=== PATIENT | male | born 1955 | race Caucasian/White ===

== ENCOUNTER 2022-10-18 05:50 | Inpatient (IN) | payer MEDICARE, OTHER ==
[2022-10-18] MEDS ORDERED: SODIUM CHLORIDE 0.9% 1,000 ML IV ONE (06:02)
[2022-10-18 06:05] LABS: Glucose,Whole Blood 109 mg/dL (70-110)
[2022-10-18] MEDS ORDERED: LORazepam 2 MG/ML INJ IV STA (06:06)
[2022-10-18 06:29] LABS: Basophils % (A) 1 %; Eosinophils # (A) 0.1 k/uL (0-0.7); Eosinophils % (A) 1 %; HCT 45.2 % (39.0-53.0); HGB 15.2 gm/dL (13.0-17.5); Lymphocytes # (A) 1.6 k/uL (1.0-4.8); Lymphocytes % (A) 20 %; MCH 37.1 pg (25.0-35.0); MCHC 33.5 g/dL (31.0-37.0); MCV 110.7 fL (80.0-100.0); Macrocytosis Marked; Mean Platelet Volume 8.3; Monocytes # (A) 0.4 k/uL (0-1.0); Monocytes % (A) 5 %; Neutrophils # (A) 5.7 k/uL (1.3-7.7); Neutrophils % (A) 71 %; Platelet Count 134 k/uL (150-450); RBC 4.08 m/uL (4.30-5.90); RDW 13.7 % (11.5-15.5)
[2022-10-18 06:32] LABS: AST 44 U/L (17-59); Acetaminophen <10.0 ug/mL; African American GFR (CKD) >90 (>60 ml/min/1.73 sqM); Albumin 3.9 g/dL (3.5-5.0); Alcohol <10 mg/dL; Alkaline Phosphatase 102 U/L (38-126); Anion Gap 14 mmol/L; Blood Urea Nitrogen 6 mg/dL (9-20); Calcium 8.7 mg/dL (8.4-10.2); Carbon Dioxide 17 mmol/L (22-30); Chloride 103 mmol/L (98-107); Creatine Kinase 71 U/L (55-170); Glucose 142 mg/dL (74-99); Non-African American GFR(CKD) 89 (>60 ml/min/1.73 sqM); Salicylate <1.0 mg/dL; Sodium 134 mmol/L (137-145); Total Bilirubin 1.3 mg/dL (0.2-1.3); Total Protein 7.3 g/dL (6.3-8.2)
[2022-10-18 06:35] LABS: INR 0.9 (<1.2)
[2022-10-18 06:38] LABS: ALT 38 U/L (4-49)
--- NOTE | 2022-10-18 06:56 | XR ---
EXAMINATION TYPE: XR pelvis AP view DATE OF EXAM: 10/18/2022 CLINICAL HISTORY: Injury with pain. TECHNIQUE: A single AP view of the pelvis is obtained. COMPARISON: None. FINDINGS: There is no acute fracture/dislocation evident in the pelvis. [id number] axial joint space loss in both hips. Sacroiliac joints are preserved. Pubic symphysis intact. The overlying sof t tissue appears unremarkable. IMPRESSION: There is no acute fracture or dislocation in the pelvis.
--- NOTE | 2022-10-18 06:57 | XR ---
EXAMINATION TYPE: XR chest 1V portable DATE OF EXAM: 10/18/2022 COMPARISON: NONE HISTORY: Altered mental status and weakness. TECHNIQUE: Single frontal view of the chest is obtained. FINDINGS: There is some chronic parenchymal change without suspicious focal air space opacity, pleur al effusion, or pneumothorax seen. The cardiac silhouette size is within normal limits with ectatic and atherosclerotic aorta. The osseous structures are intact. Overlying EKG leads. IMPRESSION: No acute process.
[2022-10-18 07:04] LABS: Appearance,Urine Clear (Clear); Bilirubin,Urine Negative (Negative); Blood,Urine Small (Negative); Color,Urine Yellow; Glucose,Urine (UA) Trace (Negative); Hyaline Casts,Urine 22 /lpf (0-2); Ketones,Urine 1+ (Negative); Leukocyte Esterase,Urine Negative (Negative); Mucus,Urine Rare /hpf; Nitrite,Urine Negative (Negative); PH, Urine 5.5 (5.0-8.0); Protein,Urine 2+ (Negative); RBC,Urine <1 /hpf (0-5); Specific Gravity,Urine 1.018 (1.001-1.035); Urobilinogen,Urine <2.0 mg/dL (<2.0); WBC,Urine 1 /hpf (0-5)
--- NOTE | 2022-10-18 07:05 | CT ---
EXAMINATION TYPE: CT brain luigi pineda DATE OF EXAM: 10/18/2022 COMPARISON: NONE HISTORY: Seizures, found down, neck pain. CT DLP: 1653.9 mGycm. Automated Exposure Control for Dose Reduction was Utilized. TECHNIQUE: CT scan of the head and cervical spine are performed without contrast. FINDINGS: There is no acute intracranial hemorrhage or midline shift identified. Mild to moderate v entricular and sulcal prominence. Dean-white matter differentiation fairly well-preserved. The calvar ium is intact. The globes are intact and the visualized sinuses are clear. Cervical spine is visualized in its entirety from C1 through upper thoracic levels and demonstrates l oss of normal cervical curvature without evidence of acute fracture or dislocation. Prevertebral sof t tissue appears within normal limits. The C1-C2 articulation is within normal limits on the coronal images. Slight grade 1 anterolisthesis of C3 on C4 and C4 on C5. There is grade 1 retrolisthesis C5 on C6 and C6 on C7. Moderate disc space narrowing and spurring C5-C6 and C6-C7 levels is seen. Revie w of axial images show multilevel uncovertebral and facet degenerative changes causing multilevel faustino ateral neural foraminal narrowing. Lung apices show emphysematous change and parenchymal scarring but no pneumothorax. Moderate calcified plaque near bilateral carotid bulb levels is incidentally noted. IMPRESSION: 1. There is no acute fracture or dislocation evident in the cervical spine. 2. No acute intracranial hemorrhage or midline shift is seen.
[2022-10-18 07:15] LABS: Amphetamine Screen,Urine Not Detected (NotDetected); Barbiturate Screen,Urine Not Detected (NotDetected); Benzodiazepines Screen,Urine Not Detected (NotDetected); Cocaine Screen,Urine Not Detected (NotDetected); Methadone Screen, Urine Not Detected (NotDetected); Opiate Screen,Urine Not Detected (NotDetected); Oxycodone Screen, Urine Not Detected (NotDetected); Phencyclidine Screen,Urine Not Detected (NotDetected); Tricyclic Antidepressant,Urine Not Detected (NotDetected); Urn Cannabinoid Scrn Not Detected (NotDetected)
[2022-10-18 07:17] LABS: Partial Thromboplastin Time 21.2 sec (22.0-30.0)
--- NOTE | 2022-10-18 08:11 | ED ---
Altered Mental Status HPI - General Chief Complaint: Altered Mental Status Stated Complaint: Fall Time Seen by Provider: 10/18/22 05:52 Source: patient, EMS Mode of arrival: EMS - History of Present Illness Initial Comments: 67-year-old male presents the emergency department with altered mental status. He recently moved to [place] from [place]. He is living with his brother who found the patient unresponsive at home. It is unknown how the patient was found in regards to positioning or how long he had been down. There are no external signs of trauma. Patient was combative and confused. Upon arrival the patient was placed in trauma 1. He is able to answer questions. Family states that the patient is a significant drinker. Unknown his last drink. They deny drug use. No seizure history. No recent illnesses. The HPI is limited due to patient's current mental status - Related Data Previous Rx's Medication Instructions Recorded Multivitamins, Thera [Multivitamin] 1 tab PO DAILY #30 tablet 10/19/22 Thiamine [Vitamin B-1] 100 mg PO DAILY 30 Days #30 tab 10/19/22 Allergies Allergy/AdvReac Type Severity Reaction Status Date / Time No Known Allergies Allergy Verified 10/18/22 06:02 Review of Systems ROS Statement: Those systems with pertinent positive or pertinent negative responses have been documented in the HPI. ROS Other: All systems not noted in ROS Statement are negative. General Exam Limitations: altered mental status General appearance: obtunded Head exam: Present: atraumatic, normocephalic, normal inspection Eye exam: Present: normal appearance, PERRL, EOMI. Absent: scleral icterus, conjunctival injection, periorbital swelling ENT exam: Present: normal exam, mucous membranes moist Neck exam: Present: normal inspection. Absent: tenderness, meningismus, lymphadenopathy Respiratory exam: Present: normal lung sounds bilaterally. Absent: respiratory distress, wheezes, rales, rhonchi, stridor Cardiovascular Exam: Present: regular rate, normal rhythm, normal heart sounds. Absent: systolic murmur, diastolic murmur, rubs, gallop, clicks GI/Abdominal exam: Present: soft, normal bowel sounds. Absent: distended, tenderness, guarding, rebound, rigid Extremities exam: Present: normal inspection, full ROM, normal capillary refill. Absent: tenderness, pedal edema, joint swelling, calf tenderness Back exam: Present: normal inspection Neurological exam: Present: altered, CN II-XII intact Skin exam: Present: warm, dry, intact, normal color. Absent: rash Course Vital Signs 10/18/22 10/18/22 10/18/22 05:55 06:05 06:18 Temperature 98.2 F Pulse Rate 92 102 H 107 H Pulse Rate [ Face Cleaner ] Respiratory 20 15 20 Rate Blood Pressure 156/102 178/82 150/85 Blood Pressure [Left Arm] O2 Sat by Pulse 98 99 100 Oximetry 10/18/22 10/18/22 10/18/22 06:55 07:07 07:30 Temperature Pulse Rate 92 96 Pulse Rate [ 97 Face Cleaner ] Respiratory 20 18 17 Rate Blood Pressure 128/77 129/71 Blood Pressure 127/77 [Left Arm] O2 Sat by Pulse 100 99 99 Oximetry 10/18/22 10/18/22 10/18/22 08:00 08:30 09:00 Temperature Pulse Rate 95 80 92 Pulse Rate [ Face Cleaner ] Respiratory 16 15 15 Rate Blood Pressure 128/75 131/84 135/87 Blood Pressure [Left Arm] O2 Sat by Pulse 100 91 L 92 L Oximetry 10/18/22 10/18/22 10/18/22 09:30 10:00 10:42 Temperature Pulse Rate 74 70 72 Pulse Rate [ Face Cleaner ] Respiratory 17 16 14 Rate Blood Pressure 115/84 133/92 123/93 Blood Pressure [Left Arm] O2 Sat by Pulse 93 L 97 95 Oximetry Medical Decision Making - Medical Decision Making Upon arrival the patient was placed in trauma 1. A thorough history and physical exam was performed. IV access was established and the patient was given a liter bolus of normal saline. He was then started on 130 mL per hour. Laboratory studies are conducted and reviewed. Patient does have a full tonic- clonic seizure in the trauma bay and therefore he is given 2 mg of Ativan. Laboratory studies are mostly within normal limits. CT the head is performed which demonstrated no acute intracranial process. Chest and pelvic x-ray also performed as it is unknown the patient sustained any injuries. CT and chest x- ray are read by myself and also read by the radiologist as negative for any acute process. I did speak with the patient's sister who states that he drinks half a gallon a day. Alcohol negative at this time. Suspect alcohol withdrawal seizures. Patient does become more alert and does state that he is a drinker however he only drinks "a little bitta ihsan" I recommended admission for which the patient was agreeable. Spoke with Kya from [facility] fo admission. - Lab Data Result diagrams: 10/19/22 03:37 10/19/22 03:37 Lab Results 10/18/22 10/18/22 10/18/22 Range/Units 06:04 06:09 06:09 WBC 8.0 (3.8-10.6) k/uL RBC 4.08 L (4.30-5.90) m/uL Hgb 15.2 (13.0-17.5) gm/dL Hct 45.2 (39.0-53.0) % MCV 110.7 H (80.0-100.0) fL MCH 37.1 H (25.0-35.0) pg MCHC 33.5 (31.0-37.0) g/dL RDW 13.7 (11.5-15.5) % Plt Count 134 L (150-450) k/uL MPV 8.3 Neutrophils % 71 % Lymphocytes % 20 % Monocytes % 5 % Eosinophils % 1 % Basophils % 1 % Neutrophils # 5.7 (1.3-7.7) k/uL Lymphocytes # 1.6 (1.0-4.8) k/uL Monocytes # 0.4 (0-1.0) k/uL Eosinophils # 0.1 (0-0.7) k/uL Basophils # 0.0 (0-0.2) k/uL Manual Slide Review Performed Macrocytosis Marked A PT 10.0 (9.0-12.0) sec INR 0.9 (<1.2) APTT 21.2 L (22.0-30.0) sec Sodium (137-145) mmol/L Potassium (3.5-5.1) mmol/L Chloride (98-107) mmol/L Carbon Dioxide (22-30) mmol/L Anion Gap mmol/L BUN (9-20) mg/dL Creatinine (0.66-1.25) mg/dL Est GFR (CKD-EPI)AfAm (>60 ml/min/1.73 sqM) Est GFR (CKD-EPI)NonAf (>60 ml/min/1.73 sqM) Glucose (74-99) mg/dL POC Glucose (mg/dL) 109 (70-110) mg/dL POC Glu Elevator Builder ID Lino Berry Calcium (8.4-10.2) mg/dL Total Bilirubin (0.2-1.3) mg/dL AST (17-59) U/L ALT (4-49) U/L Alkaline Phosphatase (38-126) U/L Creatine Kinase (55-170) U/L Troponin I (0.000-0.034) ng/mL Total Protein (6.3-8.2) g/dL Albumin (3.5-5.0) g/dL Vitamin B12 (200.0-944.0) pg/mL Folate (4.40-31.00) ng/mL TSH (0.465-4.680) mIU/L Free T4 (0.78-2.19) ng/dL Urine Color Urine Appearance (Clear) Urine pH (5.0-8.0) Ur Specific [place] (1.001-1.035) Urine Protein (Negative) Urine Glucose (UA) (Negative) Urine Ketones (Negative) Urine Blood (Negative) Urine Nitrite (Negative) Urine Bilirubin (Negative) Urine Urobilinogen (<2.0) mg/dL Ur Leukocyte Esterase (Negative) Urine RBC (0-5) /hpf Urine WBC (0-5) /hpf Hyaline Casts (0-2) /lpf Urine Mucus (None) /hpf Salicylates mg/dL Urine Opiates Screen (NotDetected) Ur Oxycodone Screen (NotDetected) Urine Methadone Screen (NotDetected) Ur Propoxyphene Screen (NotDetected) Acetaminophen ug/mL Ur Barbiturates Screen (NotDetected) U Tricyclic Antidepress (NotDetected) Ur Phencyclidine Scrn (NotDetected) Ur Amphetamines Screen (NotDetected) U Methamphetamines Scrn (NotDetected) U Benzodiazepines Scrn (NotDetected) Urine Cocaine Screen (NotDetected) U Marijuana (THC) Screen (NotDetected) Serum Alcohol mg/dL 10/18/22 10/18/22 10/18/22 Range/Units 06:09 06:09 06:09 WBC (3.8-10.6) k/uL RBC (4.30-5.90) m/uL Hgb (13.0-17.5) gm/dL Hct (39.0-53.0) % MCV (80.0-100.0) fL MCH (25.0-35.0) pg MCHC (31.0-37.0) g/dL RDW (11.5-15.5) % Plt Count (150-450) k/uL MPV Neutrophils % % Lymphocytes % % Monocytes % % Eosinophils % % Basophils % % Neutrophils # (1.3-7.7) k/uL Lymphocytes # (1.0-4.8) k/uL Monocytes # (0-1.0) k/uL Eosinophils # (0-0.7) k/uL Basophils # (0-0.2) k/uL Manual Slide Review Macrocytosis PT (9.0-12.0) sec INR (<1.2) APTT (22.0-30.0) sec Sodium 134 L (137-145) mmol/L Potassium 4.0 (3.5-5.1) mmol/L Chloride 103 (98-107) mmol/L Carbon Dioxide 17 L (22-30) mmol/L Anion Gap 14 mmol/L BUN 6 L (9-20) mg/dL Creatinine 0.86 (0.66-1.25) mg/dL Est GFR (CKD-EPI)AfAm >90 (>60 ml/min/1.73 sqM) Est GFR (CKD-EPI)NonAf 89 (>60 ml/min/1.73 sqM) Glucose 142 H (74-99) mg/dL POC Glucose (mg/dL) (70-110) mg/dL POC Glu Elevator Builder ID Calcium 8.7 (8.4-10.2) mg/dL Total Bilirubin 1.3 (0.2-1.3) mg/dL AST 44 (17-59) U/L ALT 38 (4-49) U/L Alkaline Phosphatase 102 (38-126) U/L Creatine Kinase 71 (55-170) U/L Troponin I <0.012 (0.000-0.034) ng/mL Total Protein 7.3 (6.3-8.2) g/dL Albumin 3.9 (3.5-5.0) g/dL Vitamin B12 294.0 (200.0-944.0) pg/mL Folate (4.40-31.00) ng/mL TSH 6.070 H (0.465-4.680) mIU/L Free T4 1.00 (0.78-2.19) ng/dL Urine Color Urine Appearance (Clear) Urine pH (5.0-8.0) Ur Specific [place] (1.001-1.035) Urine Protein (Negative) Urine Glucose (UA) (Negative) Urine Ketones (Negative) Urine Blood (Negative) Urine Nitrite (Negative) Urine Bilirubin (Negative) Urine Urobilinogen (<2.0) mg/dL Ur Leukocyte Esterase (Negative) Urine RBC (0-5) /hpf Urine WBC (0-5) /hpf Hyaline Casts (0-2) /lpf Urine Mucus (None) /hpf Salicylates <1.0 mg/dL Urine Opiates Screen (NotDetected) Ur Oxycodone Screen (NotDetected) Urine Methadone Screen (NotDetected) Ur Propoxyphene Screen (NotDetected) Acetaminophen <10.0 ug/mL Ur Barbiturates Screen (NotDetected) U Tricyclic Antidepress (NotDetected) Ur Phencyclidine Scrn (NotDetected) Ur Amphetamines Screen (NotDetected) U Methamphetamines Scrn (NotDetected) U Benzodiazepines Scrn (NotDetected) Urine Cocaine Screen (NotDetected) U Marijuana (THC) Screen (NotDetected) Serum Alcohol <10 mg/dL 10/18/22 10/18/22 Range/Units 06:09 06:31 WBC (3.8-10.6) k/uL RBC (4.30-5.90) m/uL Hgb (13.0-17.5) gm/dL Hct (39.0-53.0) % MCV (80.0-100.0) fL MCH (25.0-35.0) pg MCHC (31.0-37.0) g/dL RDW (11.5-15.5) % Plt Count (150-450) k/uL MPV Neutrophils % % Lymphocytes % % Monocytes % % Eosinophils % % Basophils % % Neutrophils # (1.3-7.7) k/uL Lymphocytes # (1.0-4.8) k/uL Monocytes # (0-1.0) k/uL Eosinophils # (0-0.7) k/uL Basophils # (0-0.2) k/uL Manual Slide Review Macrocytosis PT (9.0-12.0) sec INR (<1.2) APTT (22.0-30.0) sec Sodium (137-145) mmol/L Potassium (3.5-5.1) mmol/L Chloride (98-107) mmol/L Carbon Dioxide (22-30) mmol/L Anion Gap mmol/L BUN (9-20) mg/dL Creatinine (0.66-1.25) mg/dL Est GFR (CKD-EPI)AfAm (>60 ml/min/1.73 sqM) Est GFR (CKD-EPI)NonAf (>60 ml/min/1.73 sqM) Glucose (74-99) mg/dL POC Glucose (mg/dL) (70-110) mg/dL POC Glu Elevator Builder ID Calcium (8.4-10.2) mg/dL Total Bilirubin (0.2-1.3) mg/dL AST (17-59) U/L ALT (4-49) U/L Alkaline Phosphatase (38-126) U/L Creatine Kinase (55-170) U/L Troponin I (0.000-0.034) ng/mL Total Protein (6.3-8.2) g/dL Albumin (3.5-5.0) g/dL Vitamin B12 (200.0-944.0) pg/mL Folate 4.90 (4.40-31.00) ng/mL TSH (0.465-4.680) mIU/L Free T4 (0.78-2.19) ng/dL Urine Color Yellow Urine Appearance Clear (Clear) Urine pH 5.5 (5.0-8.0) Ur Specific [place] 1.018 (1.001-1.035) Urine Protein 2+ H (Negative) Urine Glucose (UA) Trace H (Negative) Urine Ketones 1+ H (Negative) Urine Blood Small H (Negative) Urine Nitrite Negative (Negative) Urine Bilirubin Negative (Negative) Urine Urobilinogen <2.0 (<2.0) mg/dL Ur Leukocyte Esterase Negative (Negative) Urine RBC <1 (0-5) /hpf Urine WBC 1 (0-5) /hpf Hyaline Casts 22 H (0-2) /lpf Urine Mucus Rare H (None) /hpf Salicylates mg/dL Urine Opiates Screen Not Detected (NotDetected) Ur Oxycodone Screen Not Detected (NotDetected) Urine Methadone Screen Not Detected (NotDetected) Ur Propoxyphene Screen Not Detected (NotDetected) Acetaminophen ug/mL Ur Barbiturates Screen Not Detected (NotDetected) U Tricyclic Antidepress Not Detected (NotDetected) Ur Phencyclidine Scrn Not Detected (NotDetected) Ur Amphetamines Screen Not Detected (NotDetected) U Methamphetamines Scrn Not Detected (NotDetected) U Benzodiazepines Scrn Not Detected (NotDetected) Urine Cocaine Screen Not Detected (NotDetected) U Marijuana (THC) Screen Not Detected (NotDetected) Serum Alcohol mg/dL - EKG Data EKG Comments: EKG demonstrates a sinus tachycardia with rate of 102. HI interval 138. QRS 101. QTC of 407. No acute ST segment elevations or depressions. EKG was interpreted by myself Disposition Clinical Impression: Alcohol withdrawal, Alcohol withdrawal seizure Narrative: seizure Disposition: ADMITTED IP TO THIS [facility] Condition: Stable Is patient prescribed a controlled substance at d/c from ED?: No Time of Disposition: 08:17 Decision to Admit Reason: Admit from EC Decision Date: 10/18/22 Decision Time: 08:17
[2022-10-18] MEDS ORDERED: NALOXONE 0.4 MG/ML 1 ML VIAL IV PRN (08:17)
[2022-10-18] MEDS ORDERED: THIAMINE 100 MG/ML 2 ML VIAL IM STA (08:23)
[2022-10-18] MEDS ORDERED: LORazepam 1 MG TAB PO PRN ×3 (08:23)
[2022-10-18] MEDS ORDERED: LORazepam 0.5 MG TAB PO PRN (08:23)
[2022-10-18] MEDS: SODIUM CHLORIDE 0.9% 1,000 ML IV SCH ×3 (09:06→19:37)
--- NOTE | 2022-10-18 13:24 | P.CNNES ---
History of Present Illness Consult date: 10/18/22 Requesting physician: Shira Jacobson Reason for Consult: New onset seizure History of Present Illness: Patient is a 67-year-old male came to the hospital by ambulance early this morning at 5:50 AM for a new onset seizure. EMS flow sheet not available in the chart. Patient not able to provide any history. Patient states that he does not remember anything and just woke up in the ER. He states that yesterday he was laying in the bed and his mood was changing. Patient then mentioned that he slept hold a yesterday, because he has not had good sleep the night prior. Patient had a seizure in the ER about 10 minutes after arrival to the ER. Patient was alert and oriented 3 prior to the seizure but confused about current situation. Seizure lasted approximately 1 minute. Patient was given 2 mg Ativan and placed on nonrebreather after the seizure. According to the ED record, patient has recently moved to [place] from [place]. He is living with his brother who found patient unresponsive at his home. There were no external signs of trauma. Patient was combative and confused. Family has mentioned that patient is a significant drinker, unknown his last drink. They denied drug use. No previous history of seizures. No recent illnesses. Vital signs arrival blood pressure 156/102, pulse rate 92 temperature 98.2. Blood pressure was normal WBC, hemoglobin 15.2 with elevated MCV 110.7. Platelets are 134. PT/PTT normal. Sodium 134 potassium 4.0, normal renal and hepatic panel. CK is normal, troponin negative. TSH is mildly elevated 6.070 with normal free T4 1.0. UA is negative. Urine drug screen negative, blood alcohol level <10. Computed tomography scan cervical spine showed no acute fracture or dislocation evident in the cervical spine. CT head showed no acute intracranial hemorrhage or midline shift. I personally reviewed CT head, agree with the findings. Chest x-ray is normal. Pelvic x-ray showed no fracture. EKG shows sinus tachycardia. Patient at present denies any numbness or tingling. Denies any headache. No fever. No previous history of concussions. Patient tells me that he only drinks 2 bottles of beer about once or twice a week. He denies significant al coholism. He admits to smoking one pack per day since age 17. He denies any history of seizures. Review of Systems Constitutional: Denies chills, Denies fever Eyes: denies blurred vision, denies pain Ears, nose, mouth and throat: Denies headache, Denies sore throat Cardiovascular: Denies chest pain, Denies shortness of breath Respiratory: Denies cough Gastrointestinal: Denies abdominal pain, Denies diarrhea, Denies nausea, Denies vomiting Musculoskeletal: Denies myalgias Integumentary: Denies pruritus, Denies rash Neurological: Reports as per HPI Psychiatric: Denies anxiety, Denies depression Endocrine: Denies fatigue, Denies weight change Medications and Allergies Home Medications Medication Instructions Recorded Confirmed Type Unable To Assess [Unable to Assess] 10/18/22 10/18/22 History Allergies Allergy/AdvReac Type Severity Reaction Status Date / Time No Known Allergies Allergy Verified 10/18/22 06:02 Physical Examination - Vital Signs Vital Signs: Vital Signs Temp Pulse Pulse Resp BP BP Pulse Ox 10/18/22 09:00 92 15 135/87 92 L 10/18/22 08:30 80 15 131/84 91 L 10/18/22 08:00 95 16 128/75 100 10/18/22 07:30 96 17 129/71 99 10/18/22 07:07 92 18 128/77 99 10/18/22 06:55 97 20 127/77 100 10/18/22 06:18 107 H 20 150/85 100 10/18/22 06:05 102 H 15 178/82 99 10/18/22 05:55 98.2 F 92 20 156/102 98 Intake and Output 10/17/22 10/18/22 10/18/22 22:59 06:59 14:59 Other: Weight 61.235 kg Patient is an elderly male, appears slightly younger than his stated age. Patient is somnolent, probably from receiving Ativan and postictal state. Patient knows that he is in the hospital, but thinks is in the [facility] in [place]. He states that he lives in [place]. He thinks it is June 2022. When I mentioned that the month is incorrect, states it's August. He knows name of the current president. Speech and language functions are normal. Patient can name and repeat very well. No aphasia or dysarthria. Attention, concentration and fund of knowledge is limited. On cranial nerve examination, pupils are equal, round and reacting to light, visual rocha are full on confrontation, with no neglect on double simultaneous depression. Extraocular muscles are intact with no nystagmus. Face is symmetric, tongue protrudes to the midline. Palatal elevation and sensation normal, hearing and shoulder shrug normal, facial sensation normal. No signs of oral trauma. On muscle strength testing, there is no pronator drift and the strength is normal in arms and legs distally and proximally, except left deltoid which is painful and about 4. Deep tendon reflexes are symmetric biceps 1, brachioradialis 1, knees 2, ankles 1+ and plantar is up on the right, down, and flat on the left. Sensory to touch is equal with no neglect on double simultaneous stimulation. Cerebellar function showed no ataxia for [id number] testing. Patient did not cooperate for [id number] testing. Tone and bulk of muscles normal. Gait deferred.. On general examination, there is no carotid bruit or murmur, S1-S2 audible. Chest is clear on consultation. Abdomen is soft nontender. No organomegaly, bowel sounds present. Peripheral pulses are present. No edema. Results - Laboratory Findings CBC and BMP: 10/18/22 06:09 10/18/22 06:09 Abnormal Lab Findings: Abnormal Labs 10/18/22 10/18/22 10/18/22 06:09 06:09 06:09 RBC 4.08 L MCV 110.7 H MCH 37.1 H Plt Count 134 L Macrocytosis Marked A APTT 21.2 L Sodium 134 L Carbon Dioxide 17 L BUN 6 L Glucose 142 H TSH 6.070 H Urine Protein Urine Glucose (UA) Urine Ketones Urine Blood Hyaline Casts Urine Mucus 10/18/22 06:31 RBC MCV MCH Plt Count Macrocytosis APTT Sodium Carbon Dioxide BUN Glucose TSH Urine Protein 2+ H Urine Glucose (UA) Trace H Urine Ketones 1+ H Urine Blood Small H Hyaline Casts 22 H Urine Mucus Rare H Assessment and Plan Assessment: * New onset seizure, unclear etiology. Possible alcohol withdrawal. Patient's family has reported in the ER that he is a drinker, although patient denies heavy drinking at this time. * Macrocytosis, probably due to alcoholism * Tobacco use Plan: * EEG evaluate for any epileptiform activity. * WA protocol, watch for DTs. * B12, folate * Continue thiamine, folic acid. * Recommended tobacco cessation, and abstain from alcoholism (if confirmed) * No driving for 6 months, climbing ladders, operate dangerous machinery or unsupervised swimming. * Neurology will follow. Thank you for the consult. Addendum: EEG was performed, which is normal in awake, drowsy and sleep state. No epileptiform activity was seen.
--- NOTE | 2022-10-18 14:10 | P.HPIM ---
History of Present Illness H&P Date: 10/18/22 This is a 67-year-old male who presented to the emergency department this morning at altered mental status. Patient per family was recently living in [place] and moving up here to stay with family. Patient is noted to have a profound drinking history and when asking patient he reports a few beers daily. Sister reported he drinks approximately half gallon of liquor daily and unknown of his last drink. Patient came in altered and confused and combative and was noted to have seizure-like activity in the ER with neurology on consultation and patient was admitted for EtOH with possible alcohol withdrawal seizures. Patient is a poor historian currently sedated on Ativan as CIWA protocol was initiated. Patient denies significant medical history and reports he does not take medications for anything. Patient reports to smoking approximately a pack a day of cigarettes and will initiate nicotine patch. Agree with and recommend CIWA protocol and monitoring closely for any delirium tremens. Labs reviewed on ED admission with a normal WBC of 8.0, hemoglobin was 15.2, platelets 134, so dium 134, potassium 4.0, creatinine 0.86, total bili is 1.3 and liver functions within normal limits. Troponin was negative. TSH was elevated at 6.070 although free T4 was done and 1.00, urinalysis was negative, drug screen was negative and serum alcohol was less than 10. Head CT of the neck was done which was negative for acute process, chest x-ray shows no acute process. EKG shows sinus tachycardia with heart rate of 102. X-ray of the pelvis was done as patient was reporting some pain and found down although there is no acute fracture or dislocation in the pelvis noted. Patient was started on IV hydration along with CIWA protocol and admitted for neurology evaluation. Review Of Systems: Constitutional: No fever, no chills, no night sweats. No weight change. No weakness, fatigue or lethargy. No daytime sleepiness. EENT: No headache. No blurred vision or double vision, no loss of vision. No loss of Hearing, no ringing in the ears, no dizziness. No nasal drainage or congestion. No epistaxis. No sore throat. Lungs: No shortness of breath, cough, no sputum production. No wheezing. Cardiovascular: No chest pain, no lower extremity edema. No palpitations. No paroxysmal nocturnal dyspnea. No orthopnea. No lightheadedness or dizziness. No syncopal episodes. Abdominal: No abdominal pain. No nausea, vomiting. No diarrhea. No constipation. No bloody or tarry stools.. No loss of appetite. Genitourinary: No dysuria, increased frequency, urgency. No urinary retention. Musculoskeletal: No myalgias. No muscle weakness, no gait dysfunction, no frequent falls. No back pain. No neck pain. Integumentary: No wounds, no lesions. No rash or pruritus. No unusual bruising. No change in hair or nails. Neurologic: No aphasia. No facial droop. No change in mentation. No head injury. No headache. No paralysis. No paresthesia. Psychiatric: No depression. No anxiety. No mood swings. Endocrine: No abnormal blood sugars. No weight change. No excessive sweating or thirst. No cold intolerance. PHYSICAL EXAMINATION: GENERAL: The patient is alert and oriented x2-3 lethargic and sedated on Ativan per protocol, arousable and able to answer questions appropriately. Thin built elderly appearing male unkempt multiple dental caries and missing teeth noted HEENT: Pupils are round and equally reacting to light. EOMI. no scleral icterus. No conjunctival pallor. Normocephalic, atraumatic. No pharyngeal erythema. No thyromegaly. CARDIOVASCULAR: S1 and S2 muffled PULMONARY: diminished breath sounds bilaterally with no wheezing or rhonchi noted. ABDOMEN: soft. Nontender on exam. non-distended, normoactive bowel sounds. No palpable organomegaly. MUSCULOSKELETAL: No joint swelling or deformity. EXTREMITIES: No cyanosis, clubbing, or pedal edema. NEUROLOGICAL: Gross neurological examination did not reveal any focal deficits. Diffuse weakness SKIN: No rashes. Assessment: Acute alcohol withdrawal with delirium tremens History of continued alcohol abuse New onset seizure, most likely alcohol withdrawal induced History of TIA a few months ago Continued ongoing nicotine dependence GI prophylaxis DVT prophylaxis Full code Plan: Recommend to continue with current medications and management. Neurology was consulted for evaluation of these new-onset seizures. Patient continued on IV hydration and will continue on CIWA protocol and monitor for withdrawals. Patient currently sedated on Ativan although arousable and able to answer que stions appropriately. Patient admits to smoking approximately a half to 1 pack a day and will add nicotine patch. Patient also reported that he drinks a couple times a week a few beers although per sister's report he has been noted to drink approximately half a gallon of liquor daily. Patient recently moved here from [place] to [place] to be with family. Patient reports he does not have a past medical history and does not take any medications on a regular basis. Will continue IV hydration with follow-up labs in the a.m. and encouraged to increase activity as tolerated. Diet has been ordered and will continue CIWA protocol. Neurology evaluating the patient and EEG is ordered and pending at this time. Recommend seizure precautions for now. The impression and plan of care has been dictated by Evelia Gonzalez, nurse practitioner as directed. Dr. Jayal MD I have performed a history and examination and MDM of this patient, discussed the same with the dictator, and agree with the dictator's assessment and plan as written ,documented as a scribe. Based on total visit time, I have performed more than 50% of the visit. Any additional findings or plans will be noted. Medications and Allergies Home Medications Medication Instructions Recorded Confirmed Type Unable To Assess [Unable to Assess] 10/18/22 10/18/22 History Allergies Allergy/AdvReac Type Severity Reaction Status Date / Time No Known Allergies Allergy Verified 10/18/22 06:02 Physical Exam Vitals: Vital Signs Temp Pulse Pulse Resp BP BP Pulse Ox 10/18/22 09:00 92 15 135/87 92 L 10/18/22 08:30 80 15 131/84 91 L 10/18/22 08:00 95 16 128/75 100 10/18/22 07:30 96 17 129/71 99 10/18/22 07:07 92 18 128/77 99 10/18/22 06:55 97 20 127/77 100 10/18/22 06:18 107 H 20 150/85 100 10/18/22 06:05 102 H 15 178/82 99 10/18/22 05:55 98.2 F 92 20 156/102 98 Intake and Output 10/17/22 10/18/22 10/18/22 22:59 06:59 14:59 Other: Weight 61.235 kg Results CBC & Chem 7: 10/18/22 06:09 10/18/22 06:09 Labs: Abnormal Lab Results - Last 24 Hours (Table) 10/18/22 10/18/22 10/18/22 Range/Units 06:09 06:09 06:09 RBC 4.08 L (4.30-5.90) m/uL MCV 110.7 H (80.0-100.0) fL MCH 37.1 H (25.0-35.0) pg Plt Count 134 L (150-450) k/uL Macrocytosis Marked A APTT 21.2 L (22.0-30.0) sec Sodium 134 L (137-145) mmol/L Carbon Dioxide 17 L (22-30) mmol/L BUN 6 L (9-20) mg/dL Glucose 142 H (74-99) mg/dL TSH 6.070 H (0.465-4.680) mIU/L Urine Protein (Negative) Urine Glucose (UA) (Negative) Urine Ketones (Negative) Urine Blood (Negative) Hyaline Casts (0-2) /lpf Urine Mucus (None) /hpf 10/18/22 Range/Units 06:31 RBC (4.30-5.90) m/uL MCV (80.0-100.0) fL MCH (25.0-35.0) pg Plt Count (150-450) k/uL Macrocytosis APTT (22.0-30.0) sec Sodium (137-145) mmol/L Carbon Dioxide (22-30) mmol/L BUN (9-20) mg/dL Glucose (74-99) mg/dL TSH (0.465-4.680) mIU/L Urine Protein 2+ H (Negative) Urine Glucose (UA) Trace H (Negative) Urine Ketones 1+ H (Negative) Urine Blood Small H (Negative) Hyaline Casts 22 H (0-2) /lpf Urine Mucus Rare H (None) /hpf Thrombosis Risk Factor Assmnt - DVT/VTE Prophylaxis DVT/VTE Prophylaxis: Pharmacologic Prophylaxis ordered Assessment and Plan Time with Patient: Greater than 30
[2022-10-18] MEDS: NICOTINE 21MG/24HR PATCH TRANSDERM SCH (14:49)
[2022-10-18] MEDS: HEPARIN SODIUM,PORCINE/PF 5,000 UNIT/0.5 ML SYRINGE SQ SCH (19:36)
--- NOTE | 2022-10-18 20:27 | EEG ---
ELECTROENCEPHALOGRAM REPORT PREAMBLE: This is a 67-year-old male with new onset seizure. This study is performed to evaluate for any epileptiform activity. EEG FINDINGS: This is a 21-channel digital EEG recorded with video component, utilizing 10/20 international system with referential and bipolar montages. Background consists of well regulated, moderate amplitude activity in 8-9 hertz alpha. Background is posterior dominant and reactive to eye opening and closing. Some moderate amount of low-voltage fast frequency beta activity was also seen. Photic driving response was not clearly seen. Drowsiness and stage 2 sleep was seen with appearance of bilaterally symmetric theta frequency and some sleep spindles were seen. No focal or generalized epileptiform activity was seen. IMPRESSION: This is a normal EEG during wakefulness, drowsiness and stage 2 sleep. No focal, lateralized, or epileptiform activity was seen. MMAILYNL / OLIVIAN: [id number] /
[2022-10-19] MEDS: NICOTINE 21MG/24HR PATCH TRANSDERM SCH (08:11)
[2022-10-19] MEDS: THIAMINE 100 MG TAB PO SCH (08:11)
[2022-10-19] MEDS: HEPARIN SODIUM,PORCINE/PF 5,000 UNIT/0.5 ML SYRINGE SQ SCH ×2 (08:11→20:50)
[2022-10-19] MEDS: SODIUM CHLORIDE 0.9% 1,000 ML IV SCH ×2 (08:15→10:24)
[2022-10-19 08:41] LABS: HCT 33.5 % (39.6-50.0); HGB 11.1 g/dL (13.0-17.0); MCH 35.8 pg (27.0-32.0); MCHC 33.1 g/dL (32.0-37.0); MCV 108.1 fL (80.0-97.0); Mean Platelet Volume 9.5 fL (9.5-12.2); NRBC Per 100 WBC 0 /100 WBCS (0.0-0.0); Platelet Count 111 X 10*3/uL (140-440); RDW 14.5 % (11.5-14.5); WBC 5.89 X 10*3/uL (4.50-10.00)
[2022-10-19 08:59] LABS: African American GFR (CKD) 106.4 (60.0-200.0); Anion Gap 10.2 mmol/L (10.00-18.00); BUN/Creat Ratio 7.63 Ratio (12.00-20.00); Blood Urea Nitrogen 6.1 mg/dL (9.0-27.0); Calcium 7.8 mg/dL (8.7-10.3); Carbon Dioxide 22.8 mmol/L (20.0-27.5); Non-African American GFR(CKD) 91.8 (60.0-200.0); Potassium 3.2 mmol/L (3.5-5.5)
[2022-10-19 09:51] LABS: Basophils # (A) 0.03 X 10*3/uL (0.00-0.10); Basophils % (A) 0.5 %; Eosinophils % (A) 1.7 %; Immature Grans, Automated 0.2 %; Lymphocytes # (A) 1.65 X 10*3/uL (0.90-5.00); Macrocytosis (M) 2+; Monocytes % (A) 10.2 %; Neutrophils % (A) 59.4 %
[2022-10-19] MEDS ORDERED: Potassium Replacement Protocol 1 EACH MISC MISCELLANE PRN (09:56)
[2022-10-19] MEDS ORDERED: Magnesium Replacement Protocol 1 EACH MISC MISCELLANE PRN (09:56)
[2022-10-19] MEDS: MAGNESIUM SULFATE-D5W PMX 1 GM in DEXTROSE/WATER 1 100ML.BAG IVPB SCH ×2 (10:24→12:11)
[2022-10-19] MEDS: POTASSIUM CHLORIDE ER 20 MEQ TAB.ER PO SCH ×2 (10:25→12:10)
--- NOTE | 2022-10-19 15:06 | P.DS ---
Providers Date of admission: 10/18/22 08:22 Expected date of discharge: 10/19/22 Attending physician: Michelle Velasquez Consults: 10/18/22 08:17 Consult Physician Urgent Consulting Provider: Mary Srivastava Consult Reason/Comments: new onset seizure Do you want consulting provider notified?: Yes Primary care physician: Stated None Hospital Course: Final diagnosis Acute alcohol withdrawal with delirium tremens History of continued alcohol abuse New onset seizure, most likely alcohol withdrawal induced, no epileptiform discharges noted on EEG History of TIA a few months ago Continued ongoing nicotine dependence GI prophylaxis DVT prophylaxis Full code Discharge disposition Patient is being discharged in a stable condition with guarded prognosis to home. Patient will follow-up with Dr. Adam to establish in the outpatient setting upon discharge. Patient is to also follow up with neurology outpatient. Currently the patient to follow-up with [facility] and AA meetings with possible alcohol rehab and abstain from all alcohol intake. Total time taken is greater than 35 minutes. Hospital course This is a 67-year-old male who was recently admitted with new onset seizure most likely secondary to acute alcohol withdrawal seizures. Patient does not have a history of seizures although does have a significant past medical history of drinking heavily per family. Patient was seen and evaluated by neurology underwent an EEG which was negative for any epileptiform discharges. Recommending outpatient neurology follow-up. Patient was discussed in detail of avoiding any alcohol intake. Patient needs to establish primary care provider as he was living in [place] recently moved up here with his brother to [place]. Resources provided. Patient was evaluated by physical therapy and due to weakness recommending a walker to assist with ADLs and gait dysfunction. Currently no reports of chest pain, shortness of breath, or palpitations. Patient is afebrile. No reports of nausea or vomiting and patient is tolerating diet. Patient will be discharged home today. Guarded prognosis. Physical exam: Gen: This is a 57-year-old male awake, alert and oriented 3, thin built, elderly appearing male, cachectic with multiple dental caries and missing teeth noted HEENT: Head is atraumatic, normocephalic. Pupils equal, round. Sclerae is anicteric. NECK: Supple. No JVD. No lymphadenopathy. No thyromegaly. LUNGS: Clear to auscultation. No wheezes or rhonchi. No intercostal retractions. HEART: Regular rate and rhythm. No murmur. ABDOMEN: Soft. Bowel sounds are present. No masses. No tenderness. EXTREMITIES: No pedal edema. No calf tenderness. NEUROLOGICAL: Patient is awake, alert and oriented x3. Cranial nerves 2 through 12 are grossly intact. Please refer to medication reconciliation sheet for a list of medications. The impression and plan of care has been dictated by Evelia Gonzalez, Nurse Practitioner as directed. Dr. Jayla MD I have performed a history and examination and MDM of this patient, discussed the same with the dictator, and agree with the dictator's assessment and plan as written ,documented as a scribe. Based on total visit time, I have performed more than 50% of the visit. Patient Condition at Discharge: Stable Plan - Discharge Summary Discharge Rx Participant: No New Discharge Prescriptions: New Multivitamins, Thera [Multivitamin] 1 tab PO DAILY #30 tablet Thiamine [Vitamin B-1] 100 mg PO DAILY 30 Days #30 tab Discharge Medication List Multivitamins, Thera [Multivitamin] 1 tab PO DAILY #30 tablet 10/19/22 [Rx] Thiamine [Vitamin B-1] 100 mg PO DAILY 30 Days #30 tab 10/19/22 [Rx] Follow up Appointment(s)/Referral(s): Dariana Adam MD [STAFF PHYSICIAN] - 1 Week (Patient needs to call tomorrow to make an appiointment. New Patient.) Tatiana Cordova MD [Medical Doctor] - 2 Weeks (Patient needs to call to make a follow up appointment with Dr. Cordova for in 2 weeks.) None,Stated [Primary Care Provider] - 1-2 days Patient Instructions/Handouts: Thiamine (By mouth), Vitamin B Complex (By mouth), How to Stop Smoking (DC), Alcohol Withdrawal (DC) Activity/Diet/Wound Care/Special Instructions: Activity Limited until follow-up Follow-up with primary care provider and establish Continue to avoid alcohol and discuss about possible alcohol rehab Follow up neurology outpatient Continue taking medications as prescribed Avoid tobacco use Continue current diet Discharge/Stand Alone Forms: AA Meetings [place], Community Resources, Outpatient Counseling, Inp Substance Abuse Facilities Discharge Disposition: HOME SELF-CARE
[2022-10-19] MEDS ORDERED: CYANOCOBALAMIN 1,000 MCG/ML 1 ML VIAL IM ONE (17:00)
[2022-10-19] MEDS: FOLIC ACID 1 MG TAB PO SCH (17:29)
[2022-10-20] MEDS: HEPARIN SODIUM,PORCINE/PF 5,000 UNIT/0.5 ML SYRINGE SQ SCH (07:45)
[2022-10-20] MEDS: THIAMINE 100 MG TAB PO SCH (07:46)
[2022-10-20] MEDS: FOLIC ACID 1 MG TAB PO SCH (07:46)
[2022-10-20] MEDS: NICOTINE 21MG/24HR PATCH TRANSDERM SCH (07:46)
[2022-10-20 12:13] VITALS: BP 118/74; PULSE 112; RESP 20; TEMP 97.5
--- NOTE | 2022-10-21 10:26 | P.DS ---
Providers Date of admission: 10/18/22 08:22 Expected date of discharge: 10/20/22 Attending physician: Michelle Velasquez Consults: 10/18/22 08:17 Consult Physician Urgent Consulting Provider: Mary Srivastava Consult Reason/Comments: new onset seizure Do you want consulting provider notified?: Yes Primary care physician: Stated None Hospital Course: Final diagnosis Acute alcohol withdrawal with delirium tremens History of continued alcohol abuse New onset seizure, most likely alcohol withdrawal induced, no epileptiform discharges noted on EEG History of TIA a few months ago Continued ongoing nicotine dependence Poor social support GI prophylaxis DVT prophylaxis Full code Discharge disposition Patient is being discharged in a stable condition with guarded prognosis to home. Patient will follow-up with Dr. Adam to establish in the outpatient setting upon discharge. Patient is to also follow up with neurology outpatient. Currently the patient to follow-up with [facility] and AA meetings with possible alcohol rehab and abstain from all alcohol intake. Total time taken is greater than 35 minutes. Hospital course This is a 67-year-old male who was recently admitted with new onset seizure most likely secondary to acute alcohol withdrawal seizures. Patient does not have a history of seizures although does have a significant past medical history of drinking heavily per family. Patient was seen and evaluated by neurology underwent an EEG which was negative for any epileptiform discharges. Recommending outpatient neurology follow-up. Patient was discussed in detail of avoiding any alcohol intake. Patient needs to establish primary care provider as he was living in [place] recently moved up here with his brother to [place]. Resources provided. Patient was evaluated by physical therapy and due to weakness recommending a walker to assist with ADLs and gait dysfunction. Currently no reports of chest pain, shortness of breath, or palpitations. Patient is afebrile. No reports of nausea or vomiting and patient is tolerating diet. Patient will be discharged home today. Guarded prognosis. 10/20/2022 Discharge was held last night as patient's family refused to pick the patient up and held discharge to discuss further with social work about discharge planning. Patient reports he has family members he will be going to stay with and will also be returning to his brothers for his belongings. Social work discussed with family of this discharge plan and agreeable. Patient will be discharged home today. Physical exam: Gen: This is a 57-year-old male awake, alert and oriented 3, thin built, elderly appearing male, cachectic with multiple dental caries and missing teeth noted HEENT: Head is atraumatic, normocephalic. Pupils equal, round. Sclerae is anicteric. NECK: Supple. No JVD. No lymphadenopathy. No thyromegaly. LUNGS: Clear to auscultation. No wheezes or rhonchi. No intercostal retractions. HEART: Regular rate and rhythm. No murmur. ABDOMEN: Soft. Bowel sounds are present. No masses. No tenderness. EXTREMITIES: No pedal edema. No calf tenderness. NEUROLOGICAL: Patient is awake, alert and oriented x3. Cranial nerves 2 through 12 are grossly intact. Please refer to medication reconciliation sheet for a list of medications. The impression and plan of care has been dictated by Evelia Gonzalez Nurse Prac titioner as directed. Dr. Ron MD I have performed a history and examination and MDM of this patient, discussed the same with the dictator, and agree with the dictator's assessment and plan as written ,documented as a scribe. Based on total visit time, I have performed more than 50% of the visit. Patient Condition at Discharge: Stable Plan - Discharge Summary Discharge Rx Participant: No New Discharge Prescriptions: New Multivitamins, Thera [Multivitamin] 1 tab PO DAILY #30 tablet Thiamine [Vitamin B-1] 100 mg PO DAILY 30 Days #30 tab Discharge Medication List Multivitamins, Thera [Multivitamin] 1 tab PO DAILY #30 tablet 10/19/22 [Rx] Thiamine [Vitamin B-1] 100 mg PO DAILY 30 Days #30 tab 10/19/22 [Rx] Follow up Appointment(s)/Referral(s): Dariana Adam MD [STAFF PHYSICIAN] - 1 Week (Patient needs to call tomorrow to make an appiointment. New Patient.) Tatiana Cordova MD [Medical Doctor] - 2 Weeks (Patient needs to call to make a follow up appointment with Dr. Cordova for in 2 weeks.) None,Stated [Primary Care Provider] - 1-2 days Patient Instructions/Handouts: Thiamine (By mouth), Vitamin B Complex (By mouth), How to Stop Smoking (DC), Alcohol Withdrawal (DC) Activity/Diet/Wound Care/Special Instructions: Activity Limited until follow-up Follow-up with primary care provider and establish Continue to avoid alcohol and discuss about possible alcohol rehab Follow up neurology outpatient Continue taking medications as prescribed Avoid tobacco use Continue current diet Discharge/Stand Alone Forms: AA Meetings [facility] [facility], Community Resources, Outpatient Counseling, In Substance Abuse Facilities Discharge Disposition: HOME SELF-CARE
== END 2022-10-20 14:15 | disposition home or self-care (01) | DRG 897 ==
LOC: EC 05:50 → 5NMEDONC 08:22
PROVIDERS: ADMIT Hospitalist; ATTEND Hospitalist
DX: F10.231 Alcohol dependence with withdrawal delirium (principal); R64 Cachexia; Z68.1 Body mass index [BMI] 19.9 or less, adult; F17.210 Nicotine dependence, cigarettes, uncomplicated; K02.9 Dental caries, unspecified; Y90.0 Blood alcohol level of less than 20 mg/100 ml; D77 Other disorders of blood and blood-forming organs in diseases classified elsewhere; R26.89 Other abnormalities of gait and mobility; Z28.310 Unvaccinated for COVID-19; Z63.8 Other specified problems related to primary support group; Z86.73 Personal history of transient ischemic attack (TIA), and cerebral infarction without residual deficits
CPT/HCPCS: 36415; 70450; 71045; 72125; 72170; 80048; 80053; 80143; 80179; 80306; 80320; 81001; 82550; 82607; 82746; 83735; 84439; 84443; 84484; 85025; 85610; 85730; 93005; 94760; 95819; 96361; 96372; 96374; 99285